=== PATIENT | male | born 1975 | race Two or more races ===

== ENCOUNTER 2022-06-26 10:59 | Emergency (ER) | payer SELFPAY ==
[2022-06-26] MEDS ORDERED: Tetracaine HCl/PF 0.5% 4 ML Bottle EYEBOTH ONE (11:07)
== END 2022-06-26 13:05 | disposition home or self-care (01) ==
LOC: MW.ED 10:59
DX: S20.222A Contusion of left back wall of thorax, initial encounter (principal); S40.022A Contusion of left upper arm, initial encounter; S40.212A Abrasion of left shoulder, initial encounter; S30.811A Abrasion of abdominal wall, initial encounter; T65.891A Toxic effect of other specified substances, accidental (unintentional), initial encounter; H10.213 Acute toxic conjunctivitis, bilateral; W22.09XA Striking against other stationary object, initial encounter
CPT/HCPCS: 71046; 71046-26; 99283; 99284; J3490